=== PATIENT | male | born 1965 ===

== ENCOUNTER → 2020-01-31 | Outpatient (REF) | payer OTHER ==
[2020-01-31 21:02] LABS: CRYSTALS, BODY FLUID URIC ACID (NONE SEEN); SOURCE, BODY FLUID RT ELBOW; SOURCE, BODY FLUID CRYSTALS RT ELBOW; SYNOVIAL FLUID COLOR PINK (YELLOW)
[2020-01-31 21:50] LABS: SOURCE, BODY FLUID GLUCOSE RT ELBOW
[2020-02-01 10:02] LABS: BODY FLUID RHEUMATOID SCREEN NEGATIVE (NEGATIVE); MUCIN CLOT TEST 3+ (4+)
== END ==
LOC: M LAB REF 08:56
PROVIDERS: ATTEND Physician Assistant
DX: M70.21 Olecranon bursitis, right elbow (principal)